=== PATIENT | female | born 1945 | race Caucasian/White ===

== ENCOUNTER → 2016-11-23 | Outpatient (CLI) | payer MEDICARE, MEDICAID ==
[2013-07-17 19:36] VITALS: BP 137/61
[~2016-11-23] MED LIST: AMBIEN10 MG PO; AMLODIPINE5 MG PO; B-121000 MCG PO; BACTROBAN22 TP; CALCIUM 600-D 61 TAB PO; CLINDAMYCIN300 MG PO; COLACE 100100 MG/CAP PO; COMBIVENT INH14.7 GM IH; CORTEF 20MG TAB20 MG PO; COUMADIN 77.5 MG/TAB PO; COUMADIN5 MG PO; CYMBALTA 60MG60 MG PO; DUO-KAPS1 CAP PO; ESTER C1 TA1 PO; LAMICTAL200 MG PO; LIDODERM PATCH TP; LYRICA 100MG C100 M1 PO; NIACIN500 MG PO; OMEGA-31 SGL PO; OXYCODONE15 MG PO; SIMVASTATIN40 MG PO; SYNTHROID0.175 MG PO; TYLENOL EXTRA500 M1 PO; ULTRAM 50MG TAB50 MG PO; VOLTAREN75 MG PO
== END ==
LOC: MAMMO 14:39
DX: Z12.31 Encounter for screening mammogram for malignant neoplasm of breast (principal)
CPT/HCPCS: G0202

== ENCOUNTER → 2016-12-16 | Outpatient (CLI) | payer MEDICARE, MEDICAID ==
[2013-07-17 19:36] VITALS: BP 137/61
== END ==
LOC: LAB 15:13
DX: R06.02 Shortness of breath (principal)

== ENCOUNTER → 2018-01-24 | Outpatient (CLI) | payer MEDICARE, MEDICAID ==
[2013-07-17 19:36] VITALS: BP 137/61
== END ==
LOC: MAMMO 09:59
DX: Z12.31 Encounter for screening mammogram for malignant neoplasm of breast (principal)

== ENCOUNTER → 2019-02-06 | Outpatient (CLI) | payer MEDICARE, MEDICAID ==
[2013-07-17 19:36] VITALS: BP 137/61
== END ==
LOC: MAMMO 09:13
DX: Z12.31 Encounter for screening mammogram for malignant neoplasm of breast (principal)

== ENCOUNTER → 2020-03-13 | Outpatient (CLI) | payer MEDICARE, MEDICAID ==
[2013-07-17 19:36] VITALS: BP 137/61
== END ==
LOC: AMSURD 09:58
DX: I49.9 Cardiac arrhythmia, unspecified (principal)

== ENCOUNTER → 2020-06-16 | Outpatient (CLI) | payer MEDICARE, MEDICAID ==
[2013-07-17 19:36] VITALS: BP 137/61
== END ==
LOC: MAMMO 12:47
DX: Z12.31 Encounter for screening mammogram for malignant neoplasm of breast (principal)

== ENCOUNTER → 2021-06-29 | Outpatient (CLI) | payer MEDICARE, MEDICAID | LOC: MAMMO 15:06 | DX: Z12.31 Encounter for screening mammogram for malignant neoplasm of breast (principal) ==

== ENCOUNTER → 2021-06-29 | Outpatient (CLI) | payer MEDICARE, MEDICAID | LOC: MAMMO 15:10 | DX: M85.88 Other specified disorders of bone density and structure, other site (principal); Z78.0 Asymptomatic menopausal state ==

== ENCOUNTER 2022-03-28 14:58 | Inpatient (IN) | payer MEDICARE, MEDICAID ==
[~2022-03-28] VITALS: Ht 162.6 cm; Wt 66.9 kg
[2022-03-28 15:39] VITALS: BP 133/61
[2022-03-28] MEDS ORDERED: GOOD SENSE ASPI81 M1 PO (17:55)
[2022-03-28] MEDS ORDERED: NORVASC 5MG5 MG/TAB PO (17:55)
[2022-03-28] MEDS ORDERED: XANAX0.25 M1 PO (17:55)
[2022-03-28] MEDS ORDERED: WELLBUTRIN XL300 M1 PO (17:56)
[2022-03-28] MEDS ORDERED: LIPITOR 40MG TA40 MG PO (17:56)
[2022-03-28] MEDS ORDERED: CALTRATE-600 W600 MG PO (17:57)
[2022-03-28] MEDS ORDERED: COREG12.5 M1 PO (17:58)
[2022-03-28] MEDS ORDERED: VITAMIN D3 COM1 EACH PO (17:59)
[2022-03-28] MEDS ORDERED: CYCLOBENZAPRINE10 M1 PO (18:00)
[2022-03-28] MEDS ORDERED: COMBIVENT RESPI1 SPR IH (18:00)
[2022-03-28] MEDS ORDERED: VOLTAREN ARTHRI20 GM TP ×2 (18:01)
[2022-03-28] MEDS ORDERED: CYMBALTA60 M1 PO (18:01)
[2022-03-28] MEDS ORDERED: NORCO 325 MG-51 TA1 PO (18:03)
[2022-03-28] MEDS ORDERED: CORTEF20 MG PO (18:05)
[2022-03-28 18:06] VITALS: BP 130/70
[2022-03-28] MEDS ORDERED: SYNTHROID112 MCG PO (18:07)
[2022-03-28] MEDS ORDERED: SYNTHROID0.2 MG PO (18:10)
[2022-03-28] MEDS ORDERED: MULTI-VITAMIN1 EACH PO (18:12)
[2022-03-28] MEDS ORDERED: ZESTRIL20 M1 PO (18:12)
[2022-03-28] MEDS ORDERED: LYRICA200 MG PO (18:13)
[2022-03-28] MEDS ORDERED: OXYCONTIN10 M1 PO (18:13)
[2022-03-28] MEDS ORDERED: RESTASIS 0.4 M0.4 M1 OU (18:14)
[2022-03-28] MEDS ORDERED: ULTRAM50 M1 PO (18:14)
[2022-03-28] MEDS ORDERED: VITAMIN A2400 MCG PO (18:14)
[2022-03-28] MEDS ORDERED: VITAMIN B-121000 MC2 PO (18:15)
[2022-03-28] MEDS ORDERED: VITAMIN C500 MG (18:15)
[2022-03-28] MEDS ORDERED: VITAMIN E400 UNIT PO (18:16)
[2022-03-28] MEDS ORDERED: AMBIEN10 MG PO (18:16)
--- NOTE | 2022-03-28 19:04 | NUR ---
REPORT TO SAMINA LUIS
--- NOTE | 2022-03-28 19:40 | NUR ---
Report received from Anju PAK. Patient resting in bed with IVF infusing NS at 50 ML/HR. Site patent to L AC. Patient is A/O x4. Rates pain to L shoulder, back and hip 11/14. Had Tylenol at 1842 for fever. States will wait and see if helps with pain, Declines offer of ice/heat at this time. TELE in place, HR tachy in 110's-120's. Has SOA with exertion, occasional dry cough. Ex wheeze noted in RUL. No pedal edema noted. RECORD CENTER SPECIALIST in to assist to BR. 1:1 assist with cane.
[2022-03-28 22:29] VITALS: BP 157/80
--- NOTE | 2022-03-28 22:41 | NUR ---
Up to BR with 1:1 assist and cane. Requests her Ambien that she takes at home. Verbal order received. Ambien taken. Awaiting other medication orders.
[2022-03-29] VITALS (9 sets, daily range): BP systolic 88–147; BP diastolic 64–88
--- NOTE | 2022-03-29 00:23 | NUR ---
Resting with eyes closed. No signs of pain or distress. IVF infusing at 50 ML/HR. Site patent to Abdulkadir . Bed alarm on. Call light in reach.
--- NOTE | 2022-03-29 00:38 | NUR ---
Awake now, calls for pain pill and diet coke. Eddy 1 tab taken. Rates pain to R shoulder 12/15. Declines ice pack. Reports "maybe tomorrow", states would like a shower tomorrow.
--- NOTE | 2022-03-29 02:02 | NUR ---
Slightly nauseated after coughing and gagging self. Crackers and sprite provided. Asks for analgesic. Discussed had Sherry 1 hour ago. Pain level 7 down from an 8. Offered Tylenol, ice, heat. Declined, states I want to save the Tylenol if I get a fever. Takes Xanax at this time HR elevated 120's-130's. T. 99.6. Denies further wants or needs.
[2022-03-29 05:56] LABS: HEMATOCRIT 39.9 % (37.0-47.0); HEMOGLOBIN 13.1 g/dL (12.5-16.0); MEAN CELL VOLUME 97 fl (78-100); MEAN CORPUSCULAR HEMOGLOBIN 32 pg (27-31); MEAN CORPUSCULAR HGB CONC 33 g/dL (33-37); MEAN PLATELET VOLUME 11.4 fl (7.4-10.4); PLATELET COUNT 141 K/mm3 (130-400); RED BLOOD COUNT 4.12 M/mm3 (4.10-5.30); RED CELL DISTRIBUTION WIDTH 13.5 % (11.5-14.5); WHITE BLOOD COUNT 19.5 K/mm3 (4.8-10.8)
[2022-03-29 06:05] LABS: POTASSIUM 3.3 mmol/L (3.5-5.1)
[2022-03-29 06:07] LABS: CALCIUM 8.4 mg/dL (8.3-10.5)
[2022-03-29 06:08] LABS: TOTAL PROTEIN 5.5 g/dL (6.2-8.1)
[2022-03-29 06:10] LABS: TOTAL BILIRUBIN 0.5 mg/dL (0.2-1.2)
--- NOTE | 2022-03-29 06:21 | NUR ---
Temp 101.3. Tylenol given at this time.
--- NOTE | 2022-03-29 07:00 | NUR ---
Pt telemetry started showing rates into the 160s. EKG obtained showing a flutter. VS obtained. Called to Kya COBIAN
--- NOTE | 2022-03-29 07:00 | NUR ---
RESUMED CARE FROM SAMINA LUIS
--- NOTE | 2022-03-29 07:05 | NUR ---
Report to Anju PAK
[2022-03-29 07:17] LABS: BAND 12 % (0-10); LYMPHOCYTE 3 % (20-51); MONOCYTE 2 % (3-10)
[2022-03-29 07:18] LABS: NEUTROPHILS 83 % (42-75)
--- NOTE | 2022-03-29 07:19 | NUR ---
SPOKE WITH FIORDALIZA DHILLON APRN AND UPDATED ON PT VITALS PULSE 176. SHE STATES SHE HASNT RECEIVED REPORT ON THE PATIENT AND TO CALL THE BACK UP PHYSCIAN
--- NOTE | 2022-03-29 07:20 | NUR ---
NOTIFIED DR. FRANCISCO ON PATIENT HR 170s-180s. NEW ORDERED OBTAINED AND ADMINISTERED. FIORDALIZA DHILLON APRN NOTIFIED.
--- NOTE | 2022-03-29 07:28 | NUR ---
NEW ORDERS OBTAINED FROM FIORDALIZA JAMESON APRN FOR ECHO THIS AM. RADIOLOGY NOTIFIED.
[2022-03-29 07:56] LABS: TROPONIN-I < 0.030 ng/mL (<0.030)
--- NOTE | 2022-03-29 07:57 | NUR ---
HR REMAINING IN 140s-150s AT THIS TIME. FIORDALIZA DHILLON APRN NOTIFIED.
--- NOTE | 2022-03-29 08:52 | NUR ---
Called Gald[facility] Landa primary and cardiology for further notes. Discussed with Cardiology nurse that patient has no evidence of afib documented anywhere on chart. Per cardiology pt had been on coumadin until 2018 for history of DVT and PFO and then taken off at that time due to a scheduled procedure with neurology.
[2022-03-29 09:50] LABS: D-DIMER 5.43 mg/L FEU (0.15-0.50)
--- NOTE | 2022-03-29 09:50 | NUR ---
NOTIFIED FIORDALIZA DHILLON APRN OF [facility].
--- NOTE | 2022-03-29 14:07 | NUR ---
Called Eliz Castellanos APRN and reported positive blood cultures.
[2022-03-29 17:33] LABS: HEMATOCRIT 37.3 % (37.0-47.0); HEMOGLOBIN 12.3 g/dL (12.5-16.0); MEAN CELL VOLUME 96 fl (78-100); MEAN CORPUSCULAR HEMOGLOBIN 32 pg (27-31); MEAN CORPUSCULAR HGB CONC 33 g/dL (33-37); MEAN PLATELET VOLUME 11.7 fl (7.4-10.4); PLATELET COUNT 152 K/mm3 (130-400); RED BLOOD COUNT 3.89 M/mm3 (4.10-5.30); RED CELL DISTRIBUTION WIDTH 13.5 % (11.5-14.5); WHITE BLOOD COUNT 10.7 K/mm3 (4.8-10.8)
[2022-03-29 17:39] LABS: ALBUMIN 2.9 g/dL (3.4-4.8)
[2022-03-29 17:40] LABS: POTASSIUM 3.8 mmol/L (3.5-5.1)
[2022-03-29 17:41] LABS: CALCIUM 8.4 mg/dL (8.3-10.5)
[2022-03-29 17:42] LABS: TOTAL PROTEIN 5.5 g/dL (6.2-8.1)
[2022-03-29 17:44] LABS: TOTAL BILIRUBIN 0.3 mg/dL (0.2-1.2)
--- NOTE | 2022-03-29 18:00 | NUR ---
BLOOD PRESSURE READINGS REPORTED TO FIORDALIZA DHILLON APRN. NEW ORDERS OBTAINED.
--- NOTE | 2022-03-29 18:40 | NUR ---
PT DAUGHTER SUNG REPORTS SURGICAL HISTORY OF BOWEL DISSECTION. FIORDALIZA DHILLON, BOWLING BALL MOLDER UPDATED.
[2022-03-29 19:06] LABS: LYMPHOCYTE 2 % (20-51); MONOCYTE 3 % (3-10); NEUTROPHILS 95 % (42-75)
--- NOTE | 2022-03-29 19:32 | NUR ---
Report from Anju PAK. Resting in bed. Order received for 2nd 500 ML NS bolus. Started now, INT to RFA patent and flushed easily. A/O x4. Rates pain to L hip/back 10/15. Denies need for analgesic at this time. Lungs CTA, denies SOA, states has mild sore throat and still dry NPC at times. HR in the 80's, with occasional irregular beat heard. TELE in place. No edema noted. Denies questions, wants or needs at this time. Bed alarm on. Call light in reach.
--- NOTE | 2022-03-29 20:23 | NUR ---
B/P check 113 report to Jane Castellanos RN.
--- NOTE | 2022-03-29 22:49 | NUR ---
Blood pressure recheck after Coreg 112/64. P 88 Afebrile so far this shift.
--- NOTE | 2022-03-30 01:29 | NUR ---
Report to Nisha PAK.
[2022-03-30 02:33] VITALS: BP 124/81
[2022-03-30 06:16] VITALS: BP 127/78
[2022-03-30 06:38] LABS: HEMATOCRIT 38.9 % (37.0-47.0); HEMOGLOBIN 12.9 g/dL (12.5-16.0); MEAN CELL VOLUME 96 fl (78-100); MEAN CORPUSCULAR HEMOGLOBIN 32 pg (27-31); MEAN CORPUSCULAR HGB CONC 33 g/dL (33-37); MEAN PLATELET VOLUME 12.3 fl (7.4-10.4); PLATELET COUNT 141 K/mm3 (130-400); RED BLOOD COUNT 4.07 M/mm3 (4.10-5.30); RED CELL DISTRIBUTION WIDTH 13.5 % (11.5-14.5); WHITE BLOOD COUNT 13.4 K/mm3 (4.8-10.8)
[2022-03-30 06:55] LABS: POTASSIUM 3.6 mmol/L (3.5-5.1)
[2022-03-30 06:56] LABS: CALCIUM 8.9 mg/dL (8.3-10.5)
[2022-03-30 06:57] LABS: TOTAL PROTEIN 5.8 g/dL (6.2-8.1)
[2022-03-30 06:59] LABS: TOTAL BILIRUBIN 0.3 mg/dL (0.2-1.2)
[2022-03-30 07:02] LABS: BAND 10 % (0-10); LYMPHOCYTE 4 % (20-51); MONOCYTE 4 % (3-10); NEUTROPHILS 82 % (42-75)
--- NOTE | 2022-03-30 08:15 | NUR ---
Received report from Nisha Berman RN, this morning. Pt is awake, a/o x3 at this time, sitting up in chair with chair alarm on. Dr. Jimenez was in to see patient. Discussed changing to swingbed status for strengthening. Pt very pleasant and chatty this morning.
[2022-03-30 10:43] VITALS: BP 118/75
--- NOTE | 2022-03-30 13:14 | NUR ---
Medicated for pain rated at 7/10 at patient's request. Speaking with embedded case manager at this time.
--- NOTE | 2022-03-30 13:45 | NUR ---
Report received from Florina PAK. Pt resting in bed. C/O pain in L shoulder. Markn applied. Denies further needs at this time
[2022-03-30 14:15] VITALS: BP 119/76
[2022-03-30 17:29] VITALS: BP 135/80
--- NOTE | 2022-03-30 18:12 | NUR ---
TELEMETRY REMOVED PER ORDERS. IRREGULAR RHYTHM AT TIMES RATES 80-110.
--- NOTE | 2022-03-30 18:40 | NUR ---
DR HERNANDEZ NOTIFIED OF CULTURE SENSITIVITIES. NO NEW ORDERS
--- NOTE | 2022-03-30 19:01 | NUR ---
REPORT TO YUNIEL PAK
--- NOTE | 2022-03-30 19:50 | NUR ---
Report taken from Yesika Lombardi RN. Pt in bed alert and orientated x4. Pleasently talkative, in a good mood. C/O pain in her Lt shoulder and scapula area which meds are scheduled to be given. Call light in place and alarms on.
[2022-03-30 22:07] VITALS: BP 122/79
[2022-03-31 06:11] VITALS: BP 140/68
--- NOTE | 2022-03-31 07:14 | NUR ---
Report given to Anette PAK
[2022-03-31 07:15] LABS: BASO # 0.01 K/mm3 (0.02-0.10); EOS # 0.04 K/mm3 (0.04-0.40); EOS % 0.3 % (1.0-5.0); HEMATOCRIT 38.4 % (37.0-47.0); HEMOGLOBIN 12.4 g/dL (12.5-16.0); LYMPH# 0.69 K/mm3 (1.50-4.00); MEAN CELL VOLUME 97 fl (78-100); MEAN CORPUSCULAR HEMOGLOBIN 31 pg (27-31); MEAN CORPUSCULAR HGB CONC 32 g/dL (33-37); MEAN PLATELET VOLUME 11.8 fl (7.4-10.4); MONO # 0.68 K/mm3 (0.20-0.80); PLATELET COUNT 138 K/mm3 (130-400); RED BLOOD COUNT 3.98 M/mm3 (4.10-5.30); RED CELL DISTRIBUTION WIDTH 13.7 % (11.5-14.5)
[2022-03-31 07:22] LABS: POTASSIUM 3.8 mmol/L (3.5-5.1)
[2022-03-31 07:23] LABS: CALCIUM 8.7 mg/dL (8.3-10.5)
[2022-03-31 07:25] LABS: TOTAL PROTEIN 5.5 g/dL (6.2-8.1)
[2022-03-31 07:26] LABS: TOTAL BILIRUBIN 0.3 mg/dL (0.2-1.2)
--- NOTE | 2022-03-31 08:33 | NUR ---
Patient A&Ox4, RA, c/o pain in right shoulder, right side, front of neck and area at back of head and neck, right hip and right arm. Reports the right shoulder as "new pain" vs pain she's had in the other areas. Scheduled pain medication given at this time. Swallowed pills whole with water. This nurse applied gel to affected areas. Reports she did not sleep well last night. Chair in locked position and call light within reach.
[2022-03-31 09:05] VITALS: BP 117/66
[2022-03-31 14:10] VITALS: BP 113/74
[2022-03-31 17:36] VITALS: BP 129/75
== END 2022-03-31 19:38 | disposition swing bed (61) | DRG 872 ==
LOC: MED/SURG 14:58
PROVIDERS: Internal Medicine; Nurse Practitioner; ADMIT Physician Assistant
DX: A41.9 Sepsis, unspecified organism (principal); N39.0 Urinary tract infection, site not specified; N17.9 Acute kidney failure, unspecified; R47.01 Aphasia; I10 Essential (primary) hypertension; E03.9 Hypothyroidism, unspecified; F41.9 Anxiety disorder, unspecified; R79.1 Abnormal coagulation profile; R29.6 Repeated falls; R91.8 Other nonspecific abnormal finding of lung field; R53.81 Other malaise
CPT/HCPCS: A9270-GY; J0696; J1200; J1650; J2930; J7030; J7040; Q9967

== ENCOUNTER → 2022-05-25 | Outpatient (CLI) | payer MEDICARE, MEDICAID ==
[~2022-05-25] MED LIST changes: +CALTRATE-600 W600 MG PO; +COMBIVENT RESPI1 SPR IH; +COREG12.5 M1 PO; +CORTEF20 MG PO; +CYCLOBENZAPRINE10 M1 PO; +CYMBALTA60 M1 PO; +GOOD SENSE ASPI81 M1 PO; +LIPITOR 40MG TA40 MG PO; +LYRICA200 MG PO; +MULTI-VITAMIN1 EACH PO; +NORCO 325 MG-51 TA1 PO; +NORVASC 5MG5 MG/TAB PO; +OXYCONTIN10 M1 PO; +RESTASIS 0.4 M0.4 M1 OU; +SYNTHROID0.2 MG PO; +SYNTHROID112 MCG PO; +ULTRAM50 M1 PO; +VITAMIN A2400 MCG PO; +VITAMIN B-121000 MC2 PO; +VITAMIN C500 MG; +VITAMIN D3 COM1 EACH PO; +VITAMIN E400 UNIT PO; +VOLTAREN ARTHRI20 GM TP; +WELLBUTRIN XL300 M1 PO; +XANAX0.25 M1 PO; +ZESTRIL20 M1 PO
== END ==
LOC: RAD 10:52 → LAB 10:52
DX: M25.551 Pain in right hip (principal)

== ENCOUNTER → 2023-04-05 | Outpatient (CLI) | payer MEDICARE, MEDICAID | LOC: RAD 11:27 | DX: S22.41XA Multiple fractures of ribs, right side, initial encounter for closed fracture (principal); W19.XXXA Unspecified fall, initial encounter ==

== ENCOUNTER → 2023-06-02 | Outpatient (CLI) | payer MEDICARE, MEDICAID | LOC: RAD 10:13 | DX: S22.41XA Multiple fractures of ribs, right side, initial encounter for closed fracture (principal); M25.511 Pain in right shoulder; Z96.611 Presence of right artificial shoulder joint; X58.XXXA Exposure to other specified factors, initial encounter ==

== ENCOUNTER → 2023-06-06 | Outpatient (CLI) | payer MEDICARE, MEDICAID | LOC: RAD 10:31 | DX: S42.031A Displaced fracture of lateral end of right clavicle, initial encounter for closed fracture (principal); S22.41XA Multiple fractures of ribs, right side, initial encounter for closed fracture; X58.XXXA Exposure to other specified factors, initial encounter ==